=== PATIENT | male | born 2000 | race Caucasian/White ===

== ENCOUNTER 2019-02-14 10:54 | Emergency (ER) | payer OTHER ==
[2019-02-14] MEDS ORDERED: Haloperidol Lactate 5 MG/ML VIAL ONE (11:22)
[2019-02-14 11:35] LABS: #Basophils 0.1 thou/uL (0.0-0.2); #Eosinphils 0.1 thou/uL (0.0-0.7); #Lymphocytes 2.7 thou/uL (1.20-3.40); #Monocytes 0.9 thou/uL (0.11-0.59); #Neutrophils 6.3 thou/uL (1.40-6.50); %Basophils 0.6 % (0.0-1.0); %Lymphocytes 26.9 % (28.0-48.0); %Monocytes 9.2 % (0.0-4.0); %Neutrophils 62.3 % (31.0-61.0); Hemoglobin 15.1 g/dL (14.0-18.0); Mean Corpuscular HGB CONC 34.3 g/dL (32.0-36.0); Mean Corpuscular Hemoglobin 30.5 pg (25.0-35.0); Mean Corpuscular Volume 89.1 fL (78.0-98.0); Mean Platelet Volume 8.7 fL (7.4-10.4); Platelet Count 212 thou/uL (130-400); RBC Distribution Width 11.9 % (11.5-14.5); Red Blood Cell (RBC) Count 4.95 mill/uL (4.00-5.20); White Blood Cell (WBC) Count 10.1 thou/uL (4.8-10.8)
[2019-02-14 12:07] LABS: ALT (SGPT) 18 U/L (8-55); AST (SGOT) 23 U/L (5-34); Albumin 4.6 g/dL (3.5-5.0); Alkaline Phosphatase 63 U/L (Less than 750); Anion Gap 16 mmol/L (10-20); BUN (Urea Nitrogen) 10 mg/dL (8.9-20.6); Bilirubin, Total 2.7 mg/dL (0.2-1.2); CK (CPK) 398 U/L (30-200); Calc. Creatinine Clearance 0 mL/min (70-130); Calcium 9.7 mg/dL (7.8-10.44); Carbon Dioxide 23 mmol/L (22-29); Chloride 105 mmol/L (98-107); Estimated GFR-MDRD 74; Glucose 90 mg/dL (70-105); Lipase 31 U/L (8-78); Potassium 3.3 mmol/L (3.5-5.1); Protein, Total 7.6 g/dL (6.0-8.3); Sodium 141 mmol/L (136-145)
[2019-02-14 12:56] LABS: Bilirubin Negative (Negative); Blood, Urine Negative (Negative); Clarity Clear (Clear); Glucose, Urine (Dipstick) Normal (Negative); Leukocyte Negative Leu/uL (Negative); Nitrite Negative (Negative); Protein, Urine (Dipstick) Negative (Neg-Trace)
== END 2019-02-14 14:04 | disposition left against medical advice (07) ==
LOC: ERS 10:54
DX: R11.10 Vomiting, unspecified (principal); R10.9 Unspecified abdominal pain
CPT/HCPCS: 80053; 81003; 82550; 83690; 85025; J1630

== ENCOUNTER 2019-02-14 18:10 | Emergency (ER) | payer OTHER ==
[2019-02-14] MEDS ORDERED: Haloperidol Lactate 5 MG/ML VIAL ONE (18:47)
[2019-02-14] MEDS ORDERED: diphenhydrAMINE 50 MG/ML VIAL ONE (18:47)
[2019-02-14] MEDS ORDERED: Mag-Al 1200 mg/1200 mg/30 ML UDCUP ONE (19:50)
[2019-02-14] MEDS ORDERED: Lidocaine Viscous Sol 2% 15 ml UD Cup ONE (19:50)
[2019-02-14] MEDS ORDERED: Promethazine HCl 25 MG/ML VIAL ONE (20:30)
== END 2019-02-14 21:16 | disposition home or self-care (01) ==
LOC: ERS 18:10
DX: F12.188 Cannabis abuse with other cannabis-induced disorder (principal)
CPT/HCPCS: 80053; 81003; 82550; 83690; 85025; 96361; 96365; 96374; 96375; J1200; J1630; J2550

== ENCOUNTER 2019-03-27 13:02 | Emergency (ER) | payer OTHER ==
[2019-03-27] MEDS ORDERED: Haloperidol Lactate 5 MG/ML VIAL ONE (14:17)
== END 2019-03-27 13:38 | disposition left against medical advice (07) ==
LOC: ERS 13:02
DX: F12.188 Cannabis abuse with other cannabis-induced disorder (principal)
CPT/HCPCS: 96374; J1630